=== PATIENT | male | born 1965 | race Caucasian/White ===

== ENCOUNTER 2019-01-30 08:27 | Outpatient (REF) | payer MEDICAID, SELFPAY ==
[2019-01-30 21:41] LABS: Abs Immature Grans 0.02 k/cumm (0.0-0.09); Absolute Basophil Count 0.01 k/cumm (0.0-0.2); Absolute Eosinophil Count 0.17 k/cumm (0.0-0.7); Absolute Lymphocyte Count 2.71 k/cumm (1.2-3.4); Absolute Monocyte Count 0.45 k/cumm (0.11-0.7); Absolute Neutrophil Count 4.42 k/cumm (1.2-6.7); Basophils % 0.1; Eosinophils % 2.2; HCT 47.3 % (40.0-50.0); HGB 16.1 g/dL (13.5-17.5); Immature Grans % 0.3; Lymphocytes % 34.8; Mean Corpuscular Hemoglobin 30.8 pg (27.0-33.0); Mean Corpuscular Volume 90.4 fL (80-95); Mean Platelet Volume 10.7 fL (8.0-11.0); Monocytes % 5.8; Neutrophils % 56.8; Platelet Count 206 x1000/uL (130-400); RBC 5.23 m/cumm (4.50-6.00); RBC Distribution Width 12.5 % (11.8-14.1); White Blood Cell Count 7.78 k/cumm (4.4-10.8)
[2019-01-30 21:57] LABS: ALT 39 U/L (12-78); AST 25 U/L (15-37); Albumin 4.2 g/dL (3.4-5.0); Alkaline Phosphatase 94 U/L (46-116); Anion Gap 8.7 mmol/L (3-11); BUN 17 mg/dL (7-18); Bilirubin, Total 0.5 mg/dL (0.2-1.0); CO2 29.3 mmol/L (21.0-32.0); CREATININE 0.72 mg/dL (0.70-1.30); Calculated LDL 146 mg/dL; Chloride 103 mmol/L (98-107); Cholesterol 207 mg/dL (50-200); Glucose 99 mg/dL (70-100); HDL Cholesterol 35 mg/dL (40-60); Potassium 4.3 mmol/L (3.5-5.1); Sodium 141 mmol/L (136-145); TSH (W/Ref FT4) 2.21 uIU/mL (0.36-3.74); Total Protein 7.5 g/dL (6.4-8.2); Triglyceride 133 mg/dL (30-150)
== END 2019-01-30 08:47 ==
LOC: NCHCN 08:27
PROVIDERS: Visit Provider Family Medicine
DX: I10 Essential (primary) hypertension (principal)
CPT/HCPCS: 80053; 80061; 83721; 84443; 85025

== ENCOUNTER 2019-08-09 08:42 | Outpatient (REF) | payer MEDICAID, SELFPAY ==
[2019-08-09 22:07] LABS: Anion Gap 6.7 mmol/L (3-11); BUN 16 mg/dL (7-18); CO2 32.3 mmol/L (21.0-32.0); CREATININE 0.81 mg/dL (0.70-1.30); Calcium 9.6 mg/dL (8.5-10.1); Chloride 103 mmol/L (98-107); Glucose 104 mg/dL (74-106); Potassium 4.1 mmol/L (3.5-5.1); Sodium 142 mmol/L (136-145)
[2019-08-09 22:11] LABS: Hemoglobin A1C 5.6 % (3.8-5.6)
== END 2019-08-09 09:02 ==
LOC: NCHCN 08:42
PROVIDERS: Visit Provider Nurse Practitioner Family
DX: I10 Essential (primary) hypertension (principal); Z13.1 Encounter for screening for diabetes mellitus
CPT/HCPCS: 80048; 83036

== ENCOUNTER 2019-08-14 10:49 | Outpatient (REF) | payer MEDICAID, SELFPAY ==
[2019-08-14 21:57] LABS: Anion Gap 9.1 mmol/L (3-11); BUN 19 mg/dL (7-18); CO2 29.9 mmol/L (21.0-32.0); CREATININE 0.76 mg/dL (0.70-1.30); Calcium 9.1 mg/dL (8.5-10.1); Calculated LDL 142 mg/dL (<100); Chloride 102 mmol/L (98-107); Cholesterol 202 mg/dL (<200); Glucose 93 mg/dL (74-106); HDL Cholesterol 39 mg/dL (40-60); Potassium 3.6 mmol/L (3.5-5.1); Sodium 141 mmol/L (136-145); Triglyceride 107 mg/dL (<150)
== END 2019-08-14 11:09 ==
LOC: NCHCN 10:49
PROVIDERS: Visit Provider Nurse Practitioner Family
DX: R00.2 Palpitations (principal); I10 Essential (primary) hypertension; E78.5 Hyperlipidemia, unspecified
CPT/HCPCS: 80048; 80061

== ENCOUNTER 2020-10-24 21:43 | Outpatient (REF) | payer MEDICARE, MEDICAID, SELFPAY ==
[2020-10-24 13:45] LABS: Anion Gap 7.2 mmol/L (3-11); BUN 18 mg/dL (7-18); CO2 31.8 mmol/L (21.0-32.0); CREATININE 0.7 mg/dL (0.70-1.30); Chloride 103 mmol/L (98-107); Glucose 92 mg/dL (74-106); Potassium 3.8 mmol/L (3.5-5.1); Sodium 142 mmol/L (136-145)
[2020-10-24 13:57] LABS: Hemoglobin A1C 5.5 % (<5.7)
== END 2020-10-24 21:44 | disposition home or self-care (01) ==
LOC: NCHCN 21:43
PROVIDERS: Visit Provider Nurse Practitioner Family
DX: I10 Essential (primary) hypertension (principal); R73.03 Prediabetes
CPT/HCPCS: 80048; 83036

== ENCOUNTER 2021-12-01 08:00 | Outpatient (REF) | payer MEDICARE, MEDICAID, SELFPAY ==
[2021-12-01 16:00] LABS: Hemoglobin A1C 5.6 % (<5.7)
[2021-12-01 17:16] LABS: ALT 42 U/L (16-63); AST 33 U/L (15-37); Albumin 4.4 g/dL (3.4-5.0); Alkaline Phosphatase 85 U/L (46-116); Anion Gap 10.2 mmol/L (3-11); BUN 20 mg/dL (7-18); Bilirubin, Total 0.6 mg/dL (0.2-1.0); CO2 29.8 mmol/L (21.0-32.0); CREATININE 0.8 mg/dL (0.70-1.30); Calcium 8.9 mg/dL (8.5-10.1); Calculated LDL 74 mg/dL (<100); Chloride 103 mmol/L (98-107); Cholesterol 140 mg/dL (<200); Glucose 99 mg/dL (74-106); HDL Cholesterol 43 mg/dL (40-60); Potassium 3.7 mmol/L (3.5-5.1); Sodium 143 mmol/L (136-145); Total Protein 7.5 g/dL (6.4-8.2); Triglyceride 115 mg/dL (<150)
== END 2021-12-01 08:01 | disposition home or self-care (01) ==
LOC: NCHCN 08:00
PROVIDERS: Visit Provider Nurse Practitioner Family
DX: I10 Essential (primary) hypertension (principal); E78.5 Hyperlipidemia, unspecified; E66.9 Obesity, unspecified; R73.03 Prediabetes
CPT/HCPCS: 80053; 80061; 83036

== ENCOUNTER 2022-10-12 13:18 | Outpatient (REF) | payer MEDICARE, MEDICAID, SELFPAY ==
--- OUTSIDE RECORDS SUMMARY | 2022-10-12 13:22 | XMS_ITS | CCD ---
Author Name Unknown Address [address] [place] [address] [phone] Organization Unknown Address [address] [place] [address] [phone] Care Team Providers Care Swatch Cutter Name Role Phone SANAM MUÑOZ Attending Physician [phone] Vital Signs Unknown or Not Available. Allergies Allergy Code Allergy Type Reaction Status SULFA (sulfonamide) 0 Drug allergy Vomiting Act marian Procedures Unknown or Not Available. History of Immunizations Unknown or Not Available. Problems Unknown or Not Available. Results Unknown or Not Available. Active Medications Unknown or Not Available. Medications Administered During Visit Unknown or Not Available. Encounters Encounter Diagnosis Diagnosis Code Start Date Pain in right shoulder [id number] 2 Social History Smoking Status Code Start Date End Date Never smoker [id number] Patient Decision Aids Unknown or Not Available. Discharge Instructions You were admitted to [facility] on 03/04/2022 10:10 with a principal diagnosis of Pain in right shoulder You were discharged from [facility] on 03/04/2022 10:10 Should you have any questions prior to discharge, please contact a member of your healthcare team. If you have left the hospital and have any questions, please contact your primary care physician. Chief Complaint and Reason For Visit Chief Complaint Date of Onset right shoulder pain Function Status Unknown or Not Available. Plan of Care Unknown or Not Available. Referral/Transition of Care Unknown or Not Available.
--- OUTSIDE RECORDS SUMMARY | 2022-10-12 13:22 | XMS_ITS | CCD ---
Author Name Unknown Address [address] [place] [address] [phone] Organization Unknown Address [address] [place] [address] [phone] Care Team Providers Care Faucet Polisher Name Role Phone CARLA SAPP Attending Physician [phone] Vital Signs Unknown or Not Available. Allergies Allergy Code Allergy Type Reaction Status SULFA (sulfonamide) 0 Drug allergy Vomiting Act marian Procedures Unknown or Not Available. History of Immunizations Unknown or Not Available. Problems Unknown or Not Available. Results [facility] JENNID RALPHONIX* - Alexandra ect Date/Time: 07/31/2021 11:11 Test Name Code Test Result Test Units Test Ref Rang e Tier- EXPOSURE N/A SARS COV2 RNA: 55422-4 POSITIVE N/A REFERENCE RANGE: NEGAT Active Medications Unknown or Not Available. Medications Administered During Visit Unknown or Not Available. Encounters Encounter Diagnosis Diagnosis Code Start Date COVID-19 [id number] 07/31/2021 Social History Smoking Status Code Start Date End Date Never smoker [id number] Patient Decision Aids Unknown or Not Available. Discharge Instructions You were admitted to [facility] on 07/31/2021 18:09 with a principal diagnosis of COVID-19 You had the following tests done:RYAN COVID RHEONIX* You were discharged from [facility] on 07/31/2021 18:09 Should you have any questions prior to discharge, please contact a member of your healthcare team. If you have left the hospital and have any questions, please contact your primary care physician. Chief Complaint and Reason For Visit Unknown or Not Available. Function Status Unknown or Not Available. Plan of Care Unknown or Not Available. Referral/Transition of Care Unknown or Not Available.
--- OUTSIDE RECORDS SUMMARY | 2022-10-12 13:22 | XMS_ITS | CCD ---
Author Name Unknown Address [address] [place] [address] [phone] Organization Unknown Address [address] [place] [address] [phone] Care Team Providers Care Humanities Division Chair Name Role Phone SANAM MUÑOZ Attending Physician [phone] SANAM MUÑOZ Rounding (Secondary) Physician [phone] Vital Signs Unknown or Not Available. Allergies [...] Encounters Encounter Diagnosis Diagnosis Code Start Date Tendinitis of right rotator cuff [id number] 04 03/31/2022 Social History Smoking Status Code Start Date End Date Never smoker [id number] Patient Decision Aids Unknown or Not Available. Discharge Instructions You were admitted to [facility] on 03/31/2022 15:25 with a principal diagnosis of Tendinitis of right rotator cuff You were discharged from [facility] on 03/31/2022 00:00 Should you have any questions prior to [...]
--- OUTSIDE RECORDS SUMMARY | 2022-10-12 13:22 | XMS_ITS | CCD ---
Author Name Unknown Address [address] [place] [address] [phone] Organization Unknown Address [address] [place] [address] [phone] Care Team Providers Care Stove Fitter Name Role Phone YUNIER GARRISON Attending Physician [phone] MARK MICHELLE Er Physician 0 [phone] MELO Layne Registered Nurse [phone] Vital Signs Vital Sign Value Unit Date/Time Recent/Initial ? BP Systolic 138 mmHg 01/28/2022 21:25 Initial VS BP Diastolic 87 mmHg 01/28/2022 21:25 Initia l VS Respiratory Rate 18 bpm 01/28/2022 21:25 In itial VS Heart Rate 79 bpm 01/28/2022 21:25 Initial VS O2 % BldC Oximetry 95 % 01/28/2022 21:25 Initial VS BMI (Body Mass Index) 30.37 kg/m^2 01/28/2022 22: 27 Initial VS Weight Measured 211.64 lbs 01/28/2022 22:27 Ini tial VS Height 70 in 01/28/2022 22:27 Initial VS BSA (Body Surface Area) 2.18 m^2 01/28/2022 2 2:27 Initial VS Body Temperature 35.6 degrees 01/28/2022 22:27 In itial VS BP Systolic 138 mmHg 01/28/2022 22:46 Most Re cent VS BP Diastolic 74 mmHg 01/28/2022 22:46 Most R ecent VS Respiratory Rate 16 bpm 01/28/2022 22:[address] Recent VS Heart Rate 66 bpm 01/28/2022 22:46 Most Rec ent VS O2 % BldC Oximetry 94 % 01/28/2022 22:46 Most Recent VS Allergies Allergy Code Allergy Type Reaction Status SULFA (sulfonamide) 0 Drug allergy Vomiting Act marian Procedures Unknown or Not Available. History of Immunizations Unknown or Not Available. Problems Unknown or Not Available. Results C REACTIVE PROTEIN HIGH SENS ITIVITY* - Collect Date/Time: 01/28/2022 20:18 Test Name Code Test Result Test Units Test Ref Rang e CRP-HIGH SENS. 09329-0 5.67 mg/L L=0.00 H=3 .00 CRP-HIGH SENS 09312-5 0.57 mg/dL L=0.00 H=0. 30 COMPREHENSIVE METABOLIC PANE L (CMP) - Collect Date/Time: 01/28/2022 20:18 Test Name Code Test Result Test Units Test Ref Rang e GLUCOSE 2345-7 106 mg/dL L=70 H=116 BUN 3094-0 17 mg/dL L=6 H=25 CREATININE 2160-0 0.76 mg/dL L=0.67 H=1.17 SODIUM SERUM 2951-2 136 mmol/L L=136 H=145 POTASSIUM SERUM 2823-3 3.2 mmol/L L=3.4 H=5 .2 CHLORIDE SERUM 2075-0 99 mmol/L L=96 H=110 CARBON DIOXIDE (CO2) 2028-9 29 mmol/L L=22 H=34 ANION GAP 32704-3 7.9 mmol/L CALCIUM SERUM 08051-1 9.2 mg/dL L=8.2 H=10. 2 BILIRUBIN TOTAL 1975-2 0.8 mg/dL L=0.0 H=1 .3 ALK. PHOS. 6768-6 87 U/L L=46 H=116 SGOT (AST) 1920-8 27 U/L L=15 H=37 SGPT (ALT) 1742-6 37 U/L L=12 H=78 TOTAL PROTEIN 2885-2 7.7 gm/dL L=6.0 H=8.0 ALBUMIN 1751-7 4.0 gm/dL L=3.4 H=5.0 AGE 56 years eGFR (non-Afr.Amer.) 55258-6 106 mL/min eGFR (Afr-Anguillan) 48471-3 >120 mL/min MAGNESIUM SERUM* - Collect D ate/Time: 01/28/2022 20:18 Test Name Code Test Result Test Units Test Ref Rang e MAGNESIUM 81188-5 2.1 mg/dL L=1.8 H=2.4 CBC W/ DIFFERENTIAL* - Colle ct Date/Time: 01/28/2022 20:18 Test Name Code Test Result Test Units Test Ref Rang e WBC 6690-2 13.41 th/cmm L=5.00 H=10.00 NEUT % 71.0 % L=40.0 H=80.0 LYMPH % 22.2 % L=10.0 H=50.0 MONO % 19501-5 5.9 % L=2.0 H=12.0 EOS % 0.4 % L=0.0 H=8.0 BASO % 0.1 % L=0.0 H=3.0 IG % 2514-8 0.4 % L=0.0 H=1.1 NRBC % 43530-7 0.0 % L=0.0 H=0.0 NEUT abs count 751-8 9.5 th/cmm L=1.6 H=8. 4 LYMPH abs count 731-0 3.0 th/cmm L=1.5 H=4 .0 MONO abs count 742-7 0.8 th/cmm L=0.2 H=1. 0 EOS abs count 711-2 0.1 th/cmm L=0.0 H=0.5 BASO abs count 704-7 0.0 th/cmm L=0.0 H=0. 2 IG abs count 66495-7 0.1 th/cmm L=0.0 H=0.1 NRBC abs count 00860-5 0.0 mil/cmm L=0.0 H=0. 0 RBC 789-8 4.91 mil/cmm L=4.30 H=6.20 HEMOGLOBIN 718-7 15.8 gm/dL L=13.0 H=17.0 HEMATOCRIT 4544-3 44 % L=45 H=52 MCV 787-2 89 fL L=82 H=92 MCH 785-6 32.2 pg L=27.0 H=31.0 MCHC 786-4 36.1 % L=32.0 H=36.0 RDW-SD 788-0 39.3 fL L=39.0 H=49.0 PLATELET COUNT 777-3 190 th/cmm L=150 H=45 0 URINALYSIS WITH REFLEX CULT IF POSITIVE* - Collect Date/Time: 01/28/2022 22:40 Test Name Code Test Result Test Units Test Ref Rang e COLLECTION MODE: 21389-7 CLEAN CATCH N/A Color 5778-6 STRAW N/A yellow Appearance 5767-9 CLEAR N/A clear Glucose urine 58283-0 NEGATIVE N/A negative mg /dl Bilirubin 5770-3 NEGATIVE N/A negative Ketones 2514-8 NEGATIVE N/A negative mg/dl Spec gravity 5811-5 <=1.005 N/A 1.003 - 1.03 0 pH urine 2756-5 6.0 N/A 5.0 - 7.0 Protein 26769-4 NEGATIVE N/A negative mg/dl Urobilinogen 45674-6 0.2 N/A <or= 1 EU/dl Nitrite. 5802-4 NEGATIVE N/A negative Blood 5794-3 MODERATE N/A negative Leukocytes. NEGATIVE N/A negative MICROSCOPIC INDICATED N/A WBCs. 93323-2 none N/A 0-5 / hpf RBCs 57231-1 5-10 N/A 0-5 / hpf Epith cells 86118-2 none N/A 0-5 / hpf Crystals none N/A none Bacteria none N/A none Mucus 8247-9 none N/A none Casts 46959-4 none N/A none /lpf Active Medications Medications Administered During Visit Medication Dose Units Frequency Route Date/Time of Last Dose SODIUM CHLORIDE 0.9% 1000ML 1000 ML X1 01/28/2022 20:31 ACETAMINOPHEN INJ IVPB: 1000MG/100ML 1000 MG X1 01/28/2022 20:3 1 KETOROLAC INJ SDV: 30MG/1ML 30 MG X1 IV P 01/28/2022 22:44 POTASSIUM CHL TABLET: 20mEq 40 MEQ X1 PO 01/28/2022 22:44 ONDANSETRON INJ SDV: 4MG/2ML 4 MG X1 I YEAST PUMPER 01/28/2022 22:44 ER-ONDANSETRON ODT 4 PACK: 4MG 4 MG PRN Q8H PO 01/28/2022 22:44 Encounters Encounter Diagnosis Diagnosis Code Start Date Noninfective gastroenteritis and colitis, unspec ified K529 01/28/2022 Social History Smoking Status Code Start Date End Date Never smoker [id number] Patient Decision Aids Unknown or Not Available. Discharge Instructions You were admitted to [facility] on 01/28/2022 19:37 with a principal diagnosis of Noninfective gastroenteritis and colitis, unspecified You had the following tests done:URINALYSIS WITH REFLEX CULT IF POSITIVE*C REACTIVE PROTEIN HIGH SENSITIVITY*CBC W/ DIFFERENTIAL*COMPREHENSIVE METABOLIC PANEL (CMP)MAGNESIUM SERUM* You were discharged from [facility] on 01/28/2022 23:01 Should you have any questions prior to discharge, please contact a member of your healthcare team. If you have left the hospital and have any questions, please contact your primary care physician. Chief Complaint and Reason For Visit Chief Complaint Date of Onset ELEVATED HEARTRATE ALOT OF MUCUS DIARRHE A BLOOD IN STOOL ABD PAIN 01/28/2022 Function Status Unknown or Not Available. Plan of Care Unknown or Not Available. Referral/Transition of Care Unknown or Not Available.
[2022-10-12 16:08] LABS: Anion Gap 6.7 mmol/L (3-11); BUN 22 mg/dL (7-18); CO2 29.3 mmol/L (21.0-32.0); CREATININE 0.8 mg/dL (0.70-1.30); Calcium 9.2 mg/dL (8.5-10.1); Chloride 104 mmol/L (98-107); Estimated GFR 103.87 (mL/min/1.73m2); Glucose 112 mg/dL (74-106); Potassium 3.9 mmol/L (3.5-5.1); Sodium 140 mmol/L (136-145)
[2022-10-12 16:24] LABS: Hemoglobin A1C 5.6 % (<5.7)
== END 2022-10-12 13:19 | disposition home or self-care (01) ==
LOC: NCHCN 13:18
PROVIDERS: Visit Provider Nurse Practitioner Family
DX: I10 Essential (primary) hypertension (principal); R73.09 Other abnormal glucose
CPT/HCPCS: 80048; 83036

== ENCOUNTER 2023-11-08 12:41 | Outpatient (REF) | payer MEDICARE, SELFPAY ==
[2023-11-08 14:55] LABS: Hemoglobin A1C 5.6 % (<5.7)
[2023-11-08 15:10] LABS: ALT 34 U/L (16-63); AST 30 U/L (15-37); Alkaline Phosphatase 88 U/L (46-116); Anion Gap 4.7 mmol/L (3-11); BUN 16 mg/dL (7-18); Bilirubin, Total 0.6 mg/dL (0.2-1.0); CO2 31.3 mmol/L (21.0-32.0); CREATININE 0.8 mg/dL (0.70-1.30); Calcium 9.3 mg/dL (8.5-10.1); Chloride 104 mmol/L (98-107); Estimated GFR 103.22 (mL/min/1.73m2); Glucose 94 mg/dL (74-106); Potassium 3.7 mmol/L (3.5-5.1); Sodium 140 mmol/L (136-145); Total Protein 7.4 g/dL (6.4-8.2)
== END 2023-11-08 12:42 | disposition home or self-care (01) ==
LOC: NCHCN 12:41
PROVIDERS: PCP Nurse Practitioner Family; Visit Provider Nurse Practitioner Family
DX: R73.03 Prediabetes (principal); I10 Essential (primary) hypertension
CPT/HCPCS: 80053; 83036

== ENCOUNTER 2024-11-06 13:15 | Outpatient (REF) | payer MEDICARE, SELFPAY ==
[2024-11-06 16:09] LABS: HCT 46.2 % (40.0-50.0); HGB 15.7 g/dL (13.5-17.5); MCH 31.3 pg (27.0-33.0); MCV 92 fL (80-95); MPV 10.9 fL (8.0-11.0); Platelet Count 180 10^3/uL (130-400); RBC 5.01 10^6/uL (4.36-5.78); RDW 11.8 % (11.8-14.1); RDW-SD 39.7 fL; WBC 6.87 10^3/uL (4.4-10.8)
[2024-11-06 16:49] LABS: Hemoglobin A1C 5.6 % (<5.7)
[2024-11-06 17:24] LABS: ALT 37 U/L (16-63); AST 29 U/L (15-37); Albumin 4.1 g/dL (3.4-5.0); Alkaline Phosphatase 91 U/L (46-116); Anion Gap 8.9 mmol/L (3-11); BUN 14 mg/dL (7-18); Bilirubin, Total 0.7 mg/dL (0.2-1.0); CO2 30.1 mmol/L (21.0-32.0); CREATININE 0.8 mg/dL (0.70-1.30); Calcium 9.5 mg/dL (8.5-10.1); Calculated LDL 63 mg/dL (<100); Chloride 105 mmol/L (98-107); Cholesterol 129 mg/dL (<200); Estimated GFR 102.58 (mL/min/1.73m2); Glucose 160 mg/dL (74-106); HDL Cholesterol 48 mg/dL (>or=40); Potassium 3.7 mmol/L (3.5-5.1); Sodium 144 mmol/L (136-145); Total Protein 7.8 g/dL (6.4-8.2); Triglyceride 93 mg/dL (<150)
[2024-11-06 22:54] LABS: PSA, Screening 0.6 ng/mL (<=3.5)
== END 2024-11-06 13:16 | disposition home or self-care (01) ==
LOC: NCHCN 13:15
PROVIDERS: PCP Nurse Practitioner Family; Visit Provider Nurse Practitioner Family
DX: I10 Essential (primary) hypertension (principal); R73.03 Prediabetes; Z12.5 Encounter for screening for malignant neoplasm of prostate; E78.5 Hyperlipidemia, unspecified
CPT/HCPCS: 80053; 80061; 84153; 85027; 83036